=== PATIENT | female | born 1990 | race Caucasian/White ===

== ENCOUNTER 2020-12-18 18:24 | Emergency (ER) | payer OTHER ==
[~2020-12-18] VITALS: Ht 165.1 cm; Wt 97.7 kg
[2020-12-18] MEDS ORDERED: LIDOCAINE 1%/EPI 1:100,000 20 ML VIAL. IJ ONE (18:45)
[2020-12-18] MEDS ORDERED: DIPH,PERTUSS(ACELL),TET VAC/PF 0.5 ML SYRINGE. VAX IM ONE (19:00)
--- NOTE | 2020-12-18 20:02 | PHYS DOC ---
Past History Past Surgical History: No Surgical History (ROSE RUSH APRN) Alcohol Use: None (ROSE RUSH APRN) Adult General Chief Complaint Chief Complaint: LACERATION/AVULSION HPI HPI Patient is a 30-year-old female patient presented to the ED today with scalp laceration. Patient states she was at a restaurant she stood up and hit her head on the corner of a wall. Denies any loss of consciousness. (ROSE RUSH APRN) Review of Systems Review of Systems Constitutional: Denies fever or chills [] Musculoskeletal: Denies back pain or joint pain [] Integument: Reports scalp laceration Neurologic: Denies headache, focal weakness or sensory changes [] All other systems were reviewed and found to be within normal limits, except as documented in this note. (ROSE RUSH APRN) Current Medications Current Medications Current Medications Medications (Trade) Dose Ordered Sig/Edith Start Time Stop Time Status Last Admin Dose Admin Diphtheria/ Pertussis/Tetanus Vacc (ADACEL TDap SYRINGE) 0.5 ml ONCE ONCE 12/18/20 19:00 12/18/20 19:01 DC 12/18/20 19:37 0.5 ML Lidocaine/ Epinephrine (Xylocaine 1%-Epi 1:100,000) 20 ml 1X ONCE 12/18/20 18:45 12/18/20 18:46 DC 12/18/20 19:35 20 ML (ROSE RUSH LIGHTING ENGINEER) Allergies Allergies Allergies Coded Allergies Type Severity Reaction Last Updated Verified No Known Drug Allergies 12/18/20 No (ROSE RUSH APRN) Physical Exam Physical Exam Constitutional: Well developed, well nourished, no acute distress, non-toxic appearance. [] Skin: Parietal scalp with a laceration approximately 4 cm long, bleeding was well controlled Back: No tenderness, no CVA tenderness. [] Extremities: No tenderness, no cyanosis, no clubbing, ROM intact, no edema. [] Neurologic: Alert and oriented X 3, normal motor function, normal sensory function, no focal deficits noted. [] Psychologic: Affect normal, judgement normal, mood normal. [] (ROSE RUSH APRN) Current Patient Data Vital Signs Vital Signs Date Time Temp Pulse Resp B/P (MAP) Pulse Ox O2 Delivery O2 Flow Rate FiO2 12/18/20 18:44 98.8 65 20 153/92 (112) 98 Room Air (ROSE RUSH APRN) EKG EKG [] (ROSE RUSH APRN) Radiology/Procedures Radiology/Procedures Laceration/Wound Repair Wound Location: Scalp Wound's Depth, Shape: Horizontal Wound Length (cm): Approximately 4 cm Wound Explored: clean Irrigated w/ Saline (ccs): 20 Betadine Prep?: Not applicable Anesthesia: 1% of lidocaine with epinephrine Volume Anesthetic (ccs): Approximately 3 cc Wound Repaired With: 7 stephanie Progress : Wound was left open to air (ROSE RUSH APRN) Radiology/Procedures Did not see or evaluate patient. Did not discuss patient with RADIOLOGY SPECIALIST. Agree with RADIOLOGY SPECIALIST's work-up and disposition per note. (RONN RAYMUNDO MD) Heart Score C/O Chest Pain: N/A Risk Factors: Risk Factors: DM, Current or recent (<one month) smoker, HTN, HLP, family history of CAD, obesity. Risk Scores: Risk Factors: DM, Current or recent (<one month) smoker, HTN, HLP, family history of CAD, obesity. (ROSE RUSH APRN) Course & Med Decision Making Course & Med Decision Making Pertinent Labs and Imaging studies reviewed. (See chart for details) This is a 30-year-old female presented with scalp laceration that was closed by me with stephanie. Wound care instructions and return precautions provided. Tetanus updated in the ED. (ROSE RUSH APRN) Dragon Disclaimer Dragon Disclaimer This electronic medical record was generated, in whole or in part, using a voice recognition dictation system. (ROSE RUSH APRN) Departure Departure: Impression: Primary Impression: Laceration of head Disposition: HOME / SELF CARE / HOMELESS Condition: STABLE Referrals: PCP,NO (PCP) follow up with the ER or your primary care doctor in 7-10 days for staple removal Patient Instructions: Laceration Care, Adult Additional Instructions: You have scalp laceration that was closed with stephanie. You can wash your hair with regular shampoo and conditioner. Keep the laceration site clean and dry. Do not soak the laceration site. Please return to the emergency room or see your own doctor in 7 to 10 days to have the stephanie removed. Return the area for signs of infection including but not limited to increased redness, warmth, yellow drainage from the areas or any other concerning symptoms of infection and return to the ED if they occur or see your own doctor Problem Qualifiers Primary Impression: Laceration of head Encounter type: initial encounter Location of open wound of head: scalp Foreign body presence: without foreign body Qualified Codes: S01.01XA - Laceration without foreign body of scalp, initial encounter ROSE RUSH APRN Dec 18, 2020 20:02 RONN RAYMUNDO MD Dec 18, 2020 20:55
[2020-12-18 20:30] VITALS: BP 134/78
== END 2020-12-18 20:30 | disposition home or self-care (01) ==
LOC: ER 18:24
DX: S01.01XA Laceration without foreign body of scalp, initial encounter (principal); W22.8XXA Striking against or struck by other objects, initial encounter; Y93.89 Activity, other specified; Y92.511 Restaurant or cafe as the place of occurrence of the external cause; Y99.8 Other external cause status
CPT/HCPCS: 12002; 90471; 90715; 99283

== ENCOUNTER 2020-12-27 11:13 | Emergency (ER) | payer OTHER ==
[~2020-12-27] VITALS: Ht 165.1 cm; Wt 97.7 kg
[2020-12-27 11:46] VITALS: BP 118/76
--- NOTE | 2020-12-27 12:23 | PHYS DOC ---
Past History Past Surgical History: No Surgical History (BRENDAN QUINONES APRN) Alcohol Use: None (BRENDAN QUINONES APRN) Adult General Chief Complaint Chief Complaint: SUTURE/STAPLE REMOVAL HPI HPI Patient is a 30-year-old female presents to the emergency department for removal of stephanie that were placed 8 days ago after falling and hitting her head on a wall. Patient denies any dizziness or headaches, denies nausea vomiting visual disturbances syncopal or near syncopal episodes since original injury. Patient denies itching or pain to her head. Patient denies fever or chills. Patient denies noting any purulent discharge from staple site. Patient reports there are 7 stephanie on her scalp. Patient reports her last tetanus immunization was less than 5 years ago. Patient denies pain or discomfort. Patient denies other physical complaints or physical concerns. (BRENDAN QUINONES APRN) Review of Systems Review of Systems 14 body systems of review of systems have been reviewed. See HPI for pertinent positives and negative responses, otherwise all other systems are negative, nonpertinent or noncontributory. Constitutional: Negative except as outlined in HPI above. Skin: Negative except as outlined in HPI above. Eyes: Negative except as outlined in HPI above. HENT: Negative except as outlined in HPI above. Respiratory: Negative except as outlined in HPI above. Cardiovascular: Negative except as outlined in HPI above. GI: Negative except as outlined in HPI above. : Negative except as outlined in HPI above. Musculoskeletal: Negative except as outlined in HPI above. Integument: Negative except as outlined in HPI above. Neurologic: Negative except as outlined in HPI above. Endocrine: Negative except as outlined in HPI above. Lymphatic: Negative except as outlined in HPI above. Psychiatric: Negative except as outlined in HPI above. (BRENDAN QUINONES APRN) Allergies Allergies Allergies Coded Allergies Type Severity Reaction Last Updated Verified No Known Drug Allergies 12/18/20 No (BRENDAN QUINONES APRN) Physical Exam Physical Exam Constitutional: Well developed, well nourished, no acute distress, non-toxic appearance. 30-year-old female in no apparent distress. HENT: Normocephalic, atraumatic. There are 7 stephanie on center scalp near parietal parietal occipital area, no infectious process appreciated, no drainage, edges well approximated, well healed. Eyes: Conjunctiva normal, no discharge. Neck: Normal range of motion, no stridor. Cardiovascular: No cyanosis appreciated, distal cap refill less than 2 seconds. Lungs & Thorax: Patient is in no respiratory distress, no audible adventitious lung sounds appreciated. Abdomen: Nontender, no abnormalities noted. Skin: Warm, dry, no erythema, no rash. Back: No tenderness, no deformities. Extremities: No tenderness, no cyanosis, no clubbing, ROM intact, no edema. Neurologic: Alert and oriented X 3, normal motor function, normal sensory function, no focal deficits noted. Psychologic: Affect normal, judgement normal, mood normal. (BRENDAN QUINONES APRN) Current Patient Data Vital Signs Vital Signs Date Time Temp Pulse Resp B/P (MAP) Pulse Ox O2 Delivery O2 Flow Rate FiO2 12/27/20 11:46 98.5 61 20 118/76 (90) 99 (BRENDAN QUINONES APRN) EKG EKG [] (BRENDAN QUINONES APRN) Radiology/Procedures Radiology/Procedures [] (BRENDAN QUINONES APRN) Heart Score C/O Chest Pain: No Risk Factors: Risk Factors: DM, Current or recent (<one month) smoker, HTN, HLP, family history of CAD, obesity. Risk Scores: Risk Factors: DM, Current or recent (<one month) smoker, HTN, HLP, family history of CAD, obesity. (BRENDAN QUINONES APRN) Course & Med Decision Making Course & Med Decision Making Pertinent Labs and Imaging studies reviewed. (See chart for details) 30-year-old female, vital signs reviewed, presents emergency department concerning needing staple removal from scalp. Reviewed emergency department documentation from visit 8 days ago, physical examination is consistent with chief complaint, reveals well healed scalp laceration with 7 intact stephanie, edges well approximated. discussed with patient will remove 7 stephanie today, reviewed ongoing wound care and follow-up with primary care for reevaluation, strict return to ER precautions or concerns, patient is amenable to ED discharge planning. Procedure note: Reasonstaple removal Consentpatient gave verbal consent for removal of 7 dermal stephanie from scalp. Staple site evaluated, reveals 7 dermal stephanie intact, edges well approximated, well-healing laceration, no signs of infectious process, no drainage. 7 dermal stephanie were removed with staple remover tool without incident, patient tolerated well. Edges remained intact and well approximated after removal of dermal stephanie. No drainage from staple insertion site after removal. Discussed with the patient all findings and diagnostic testing as well as the need to follow-up with their primary care provider for further evaluation and treatment or return to the ED if any new or worsening symptoms. Strict return precautions were also discussed at length, the patient voiced understanding and agreement with the discharge planning. The patient was nontoxic in appearance, in no apparent distress, and hemodynamically stable at the time of disposition. (BRENDAN QUINONES APRN) Course & Med Decision Making I was the Attending physician on the above date of service of this patient. This patient was evaluated, examined, treated, and dispositioned from the emergency department by the mid-level practitioner. Although I was working at the time , no assistance was requested. Electronically signed, Joshua Arce DO (JOSHUA ARCE DO) Dragon Disclaimer Dragon Disclaimer This electronic medical record was generated, in whole or in part, using a voice recognition dictation system. (BRENDAN QUINONES APRN) Departure Departure: Impression: Primary Impression: Encounter for removal of stephanie Disposition: HOME / SELF CARE / HOMELESS Condition: GOOD Referrals: PCP,NO (PCP) Patient Instructions: Sutured Wound Care, Wound Care, [id number] Additional Instructions: You were seen today in the emergency department for removal of stephanie of your scalp that were placed 8 days ago. 7 dermal stephanie were reported inserted 8 days ago here in the emergency department, 7 dermal stephanie were removed today from your scalp. There were no signs of infectious process. Continue to perform good wound care, follow-up with your primary care physician for reevaluation soon. Return to the emergency department any signs and symptoms of infectious process, headaches, dizziness, syncopal episodes, visual disturbances, or other concern. Thank you for visiting our Emergency Department. It was a pleasure taking care of you today in the emergency department and we appreciate you trusting us with your care. If any additional problems come up don't hesitate to return to visit us. Please follow up with your primary care provider so they can plan additional care if needed and know about the problem that you had. If symptoms worsen come back to the Emergency Department. Any concerning symptoms that start such as chest pain, shortness of air, weakness or numbness on one side of the body, running high fevers or any other concerning symptoms return to the ER. BRENDAN QUINONES APRN Dec 27, 2020 12:22 JOSHUA ARCE DO Jan 08, 2021 06:16
== END 2020-12-27 12:15 | disposition home or self-care (01) ==
LOC: ER 11:13
DX: S01.01XD Laceration without foreign body of scalp, subsequent encounter (principal); X58.XXXD Exposure to other specified factors, subsequent encounter
CPT/HCPCS: 99281